=== PATIENT | female | born 1945 | race Caucasian/White ===

== ENCOUNTER → 2017-10-06 | Day surgery (SDC) | payer OTHER, MEDICARE ==
[~2017-10-06] VITALS: Ht 162.6 cm; Wt 77.1 kg
[~2017-10-06] MED LIST: ALPHA LIPOIC A300 MG PO; COCONUT OIL1000 MG PO; COLACE100 M1 PO; ELIQUIS2.5 M1 PO; EPA-DHA 720 SO1 EACH PO; GREEN TEA EXTRACT PO; K2 PLUS D3 TAB1 EACH PO; LISINOPRIL10 M1 PO; MTX SUPPORT TA1 EACH PO; NATURE-THROID65 M1 PO; NITRIC OXIDE PO; OLIVE LEAF EXT250 MG PO; PERCOCET 5-3251 EACH PO; PROBIOTIC ACID1 EACH PO; RHODIOLA ROSEA PO; TRAMADOL HCL50 M1 PO; TURMERIC500 M2 PO; VISION VITAMIN1 EACH PO; VITAMIN B COMP1 EACH PO; VITAMIN B-650 M2 PO; VITAMIN C120 GM PO; VITAMIN E200 UNI2 PO; VITAMIN E400 UNIT PO; XARELTO10 M1 PO
--- NOTE | 2017-10-06 13:50 | Operative Report ---
Operative/Inv Procedure Report Surgery Date: 10/06/17 Name of Procedure: Hemorrhoidectomy two column complete Pre-Operative Diagnosis: Grade 4 internal hemorrhoids Post-Operative Diagnosis: Grade 4 internal hemorrhoids Estimated Blood Loss: scant Surgeon/Pool Technician: Gualberto Rosado MD Anesthesia: laryngeal mask airway, block Monitors: per routine Specimens: Hemorrhoids Complications: None Condition: Good Operative Indication: This is a 72-year-old female who I began taking care for some time now. She has progressive hemorrhoidal disease despite aggressive medical treatment and has also failed office treatment. She's now developed grade 4 internal hemorrhoid and one column and only good option surgical excision. Patient is still quite symptomatic so she has consented to surgery Operative/Procedure Note Note: On the morning before her procedure she did an enema prep at home She presented to was taken into the operating room. She's placed in supine position on the operating room table and underwent induction of general anesthesia. A laryngeal mask airway was placed and she was converted to the lithotomy position in [facility]. The perineum was prepped and draped in usual fashion. An anal block was performed using 0.5% Marcaine plain mixed 5050 with 1% lidocaine with epi. A total of 30 mL was injected. A gentle digital exam was performed and then a Fansler operating proximal scope was placed. Any residual stool or mucus was irrigated away. Her largest hemorrhoid column was in the right anterior position. In this position should grade 4 hemorrhoid with large external component. An elliptical incision was carried around the hemorrhoid starting at the hemorrhoid pedicle coming into the anal margin skin. The external portion of the hemorrhoid was then grasped and then dissected free from the underlying structures identified the internal anal sphincter and developed the avascular plane between the hemorrhoid complex in the muscle. The hemorrhoid pedicle was then divided with the LigaSure. A [id number] 2-0 Vicryl was used to ligate the pedicle and the mucosa and anoderm was closed with a running locking 3-0 Vicryl suture. A small portion of the external incision was left open for drainage This exact procedure was repeated in the right posterior position. The left lateral hemorrhoid was normal so this was left intact. After completing hemorrhoidectomyfor hemostasis which was good. The area was cleansed and dried and bacitracin ointment and a bulky dressing were applied. The patient was taken down from the lithotomy position placed back into supine. She is expected in the operating room and taken recovery area in good condition At the end of this operational needle sponges and measurements were accounted for Discharge Disposition: PACU
== END ==
LOC: STS 01:06
DX: K64.3 Fourth degree hemorrhoids (principal); L72.0 Epidermal cyst; Z86.711 Personal history of pulmonary embolism; Z79.01 Long term (current) use of anticoagulants; I10 Essential (primary) hypertension
CPT/HCPCS: J0131; J2250; J2405